=== PATIENT | male | born 1960 | race American Indian/Alaskan Native ===

== ENCOUNTER 2022-05-10 18:58 | Emergency (ER) | payer SELFPAY ==
[2022-05-11 04:56] VITALS: BP 131/78
[2022-05-11] MEDS ORDERED: IPRATROPIUM 0.02% NEBU 2.5 ML IH ONE (05:21)
[2022-05-11] MEDS ORDERED: ALBUTEROL 2.5 MG/3 ML NEBU IH ONE (05:21)
[2022-05-11] MEDS ORDERED: predniSONE 20 MG TAB PO ONE (05:21)
--- NOTE | 2022-05-11 06:02 | Emergency Department Report ---
ED General Adult HPI - General Chief complaint: Medical Clearance Stated complaint: SOB/MEDICINE REFILL Time Seen by Provider: 05/11/22 05:20 Source: EMS Mode of arrival: Stretcher Limitations: No Limitations - History of Present Illness Initial comments: Patient 62-year-old male with history of asthma who presents for medication refill states asthma is generally controlled with Symbicort inhaler. He has been out for 1 week. Patient denies fevers or chills does endorse intermittent wheezing and cough. Is productive clear to yellow. Patient is COVID vaccinated. Patient rates asthma symptoms at 3/10. Patient is alert oriented x3 and ambulatory with steady gait patient denies PND. There is no fevers no chills, no nausea no vomiting. No diaphoresis. No lightheadedness or dizziness. Patient requesting refill of Symbicort. - Related Data Previous Rx's Medication Instructions Recorded Last Taken Type Albuterol Mdi (or & Nicu Only) 2 puff IH QID PRN #8.5 gram 05/11/22 Unknown Rx [ProAir HFA Inhaler] Budesonide/Formoterol Fumarate 10.2 gm IH BID #1 each 05/11/22 Unknown Rx [Symbicort 160-4.5 Mcg Inhaler] predniSONE [Deltasone] 40 mg PO QDAY 5 Days #10 tab 05/11/22 Unknown Rx Allergies Allergy/AdvReac Type Severity Reaction Status Date / Time No Known Allergies Allergy Unverified 05/10/22 19:15 ED Review of Systems ROS: Stated complaint: SOB/MEDICINE REFILL Other details as noted in HPI Constitutional: denies: chills, fever Eyes: denies: eye pain, eye discharge, vision change ENT: denies: ear pain, throat pain Respiratory: cough, shortness of breath, wheezing Cardiovascular: denies: chest pain, palpitations Endocrine: no symptoms reported Gastrointestinal: denies: abdominal pain, nausea, vomiting, diarrhea Genitourinary: denies: urgency, dysuria Musculoskeletal: denies: back pain, joint swelling, arthralgia Skin: denies: rash, lesions Neurological: denies: headache, weakness, paresthesias, vertigo Psychiatric: denies: anxiety, depression Hematological/Lymphatic: denies: easy bleeding, easy bruising ED Past Medical Hx - Past Medical History Previous Medical History?: Yes Hx Asthma: Yes Hx COPD: Yes - Surgical History Past Surgical History?: No - Social History Smoking Status: Unknown if ever smoked - Medications Home Medications: Home Medications Medication Instructions Recorded Confirmed Last Taken Type Albuterol Mdi (or & Nicu Only) 2 puff IH QID PRN #8.5 gram 05/11/22 Unknown Rx [ProAir HFA Inhaler] Budesonide/Formoterol Fumarate 10.2 gm IH BID #1 each 05/11/22 Unknown Rx [Symbicort 160-4.5 Mcg Inhaler] predniSONE [Deltasone] 40 mg PO QDAY 5 Days #10 tab 05/11/22 Unknown Rx ED Physical Exam - General Limitations: No Limitations General appearance: alert, in no apparent distress - Head Head exam: Present: normocephalic, normal inspection - Eye Eye exam: Present: normal appearance, EOMI Pupils: Present: normal accommodation - ENT ENT exam: Present: normal orophraynx, mucous membranes moist - Neck Neck exam: Present: normal inspection, full ROM. Absent: tenderness, lymphadenopathy - Respiratory Respiratory exam: Present: normal lung sounds bilaterally, wheezes (Bilateral expiratory wheezes mild). Absent: respiratory distress, stridor, chest wall tenderness - Cardiovascular Cardiovascular Exam: Present: regular rate, normal rhythm, normal heart sounds. Absent: systolic murmur, diastolic murmur, rubs, gallop - GI/Abdominal GI/Abdominal exam: Present: soft, normal bowel sounds. Absent: distended, tenderness - Rectal Rectal exam: Present: deferred - Extremities Exam Extremities exam: Present: normal inspection, full ROM, normal capillary refill - Back Exam Back exam: Present: normal inspection, full ROM. Absent: CVA tenderness (R), CVA tenderness (L) - Neurological Exam Neurological exam: Present: alert, oriented X3, CN II-XII intact - Expanded Neurological Exam Expanded Patient oriented to: Present: person, place, time Speech: Present: fluid speech Best Eye Response ([place]): (4) open spontaneously Best Motor Response ([place]): (6) obeys commands Best Verbal Response ([place]): (5) oriented [place] Total: 15 - Psychiatric Psychiatric exam: Present: normal affect, normal mood - Skin Skin exam: Present: warm, dry, intact, normal color. Absent: rash ED Course Vital Signs 05/10/22 05/11/22 05/11/22 19:15 01:46 04:55 Temperature 98 F Pulse Rate 89 86 100 H Respiratory 18 12 12 Rate Blood Pressure 123/81 Blood Pressure 122/74 131/78 [Left] O2 Sat by Pulse 97 98 100 Oximetry ED Medical Decision Making - Medical Decision Making Symptoms improved with medications given in ED. Plan refill Symbicort as requested. Albuterol inhaler for rescue inhaler, short burst steroids. Follow- up with primary care doctor in 2 to 3 days patient verbalizes agreement and understanding with discharge plan. Patient DC'd home in stable condition at this time. Critical care attestation.: If time is entered above; I have spent that time in minutes in the direct care of this critically ill patient, excluding procedure time. ED Disposition Clinical Impression: Asthma Qualifiers: Asthma severity: moderate Asthma persistence: persistent Asthma complication type: uncomplicated Qualified Code(s): J45.40 - Moderate persistent asthma, uncomplicated Disposition: HOME / SELF CARE / HOMELESS Is pt being admited?: No Does the pt Need Aspirin: No Condition: Stable Instructions: Asthma (ED), Asthma, Adult, [id number] Additional Instructions: Take medications as prescribed, follow-up with your doctor in 2 to 3 days. Return to emergency department should symptoms worsen. Prescriptions: predniSONE [Deltasone] 40 mg PO QDAY 5 Days #10 tab Albuterol Mdi (or & Nicu Only) [ProAir HFA Inhaler] 2 puff IH QID PRN #8.5 gram PRN Reason: Shortness Of Breath Budesonide/Formoterol Fumarate [Symbicort 160-4.5 Mcg Inhaler] 10.2 gm IH BID #1 each Referrals: LEE WATTS MD [Staff Physician] - 3-5 Days Forms: Work/School Release Form(ED) Time of Disposition: 06:05
== END 2022-05-11 06:51 | disposition home or self-care (01) ==
LOC: ED 18:58
DX: J45.909 Unspecified asthma, uncomplicated (principal)
CPT/HCPCS: 94640; 99282; 99283

== ENCOUNTER 2022-05-13 21:23 | Emergency (ER) | payer SELFPAY ==
[2022-05-13] MEDS ORDERED: TETANUS,DIPH,PERTUSS(ACELL) VACCINE 0.5 ML SYRINGE IM ONE (23:26)
--- NOTE | 2022-05-13 23:28 | Event Note ---
Date: 05/13/22 Medical screening examination note EMS documentation not available at time of chart dictation Medical screening examination note: 62-year-old gentleman reportedly brought to the hospital by EMS for alcohol intoxication and fall. Patient obviously intoxicated breathing spontaneously, has evidence of closed head injury, and is moving 4 extremities. He is protecting his airway. His vital signs are unremarkable. Obtain CT scan brain, facial bones, and cervical spine. Obtain appropriate laboratory studies. Placed patient on monitor. Aspiration precautions. Head of bed elevation. N.p.o. at this time. Tetanus vaccination. Detailed history and physical to be performed by oncoming provider Vital Signs 05/13/22 21:23 Temperature 98.2 F Pulse Rate 72 Respiratory 18 Rate Blood Pressure 150/79 O2 Sat by Pulse 100 Oximetry
[2022-05-14 00:07] LABS: Hematocrit 40.8 % (35.5-45.6); Hemoglobin 13.3 gm/dl (11.8-15.2); Mean Corpuscular HGB Conc 33 % (32-34); Mean Corpuscular Volume 96 fl (84-94); Platelet Count 277 K/mm3 (140-440); Red Blood Count 4.26 M/mm3 (3.65-5.03); Red Cell Distribution Width 13.1 % (13.2-15.2)
[2022-05-14 00:15] LABS: INR 0.91 (0.87-1.13)
[2022-05-14 00:17] LABS: Alanine Aminotransferase 26 units/L (7-56); Albumin 4.5 g/dL (3.9-5); Blood Urea Nitrogen 10 mg/dL (9-20); Calcium 8.6 mg/dL (8.4-10.2); Hemolysis Index 7
[2022-05-14 00:20] LABS: BUN/Creatinine Ratio 14
--- NOTE | 2022-05-14 01:02 | Cat Scan Report ---
CT HEAD WITHOUT CONTRAST INDICATION / CLINICAL INFORMATION: Alcohol intoxication, fall, and closed head injury. TECHNIQUE: All CT scans at this location are performed using CT dose reduction for ALARA by means of automated exposure control. COMPARISON: None available. FINDINGS: BRAIN PARENCHYMA: No acute intracranial hemorrhage. No evidence of recent infarct. No mass effect or midline shift. There is mild generalized atrophy with a chronic appearing left basal ganglial lacunar infarct as well as additional likely chronic microvascular ischemic changes along the periventricula r white matter. VENTRICULAR SYSTEM/EXTRA-AXIAL SPACES: Ventricles are normal for age. No extra-axial fluid collection . ORBITS: Normal as visualized. SKELETAL SYSTEM/SOFT TISSUES: Normal bones and soft tissues. PARANASAL SINUSES/MASTOID AIR CELLS: No significant abnormality. ADDITIONAL FINDINGS: None. IMPRESSION: 1. No acute intracranial abnormality. 2. Additional findings as above. Signer Name: Jose Monreal MD Signed: 05/14/2022 12:57 AM Workstation Name: [id number]
--- NOTE | 2022-05-14 01:04 | Cat Scan Report ---
CT MAXILLOFACIAL WITHOUT CONTRAST INDICATION: Alcohol Intoxication. Facial injury. History of fall. TECHNIQUE: Axial, coronal and sagittal noncontrast CT imaging was performed through the face. All CT scans at [facility] are performed using CT dose reduction for ALARA by means of automated exposure control. COMPARISON: None available. FINDINGS: FACIAL BONES: No acute fracture or dislocation. Moderate degenerative arthrosis is seen at the right TMJ. PARANASAL SINUSES: Mild mucosal thickening is noted along the ethmoid air cells and maxillary sinuses with a fluid level seen along the right sphenoid sinus. No other significant abnormality of the sinu ses or mastoid air cells. ORBITS: No significant abnormality. VISUALIZED INTRACRANIAL STRUCTURES: No significant abnormality. ADDITIONAL FINDINGS: None. IMPRESSION: 1. No acute injury of the face. 2. Additional findings as above. Signer Name: Jose Monreal MD Signed: 05/14/2022 1:00 AM Workstation Name: [id number]
--- NOTE | 2022-05-14 01:08 | Cat Scan Report ---
CT CERVICAL SPINE WITHOUT CONTRAST INDICATION: Neck injury after fall. History of alcohol intoxication. COMPARISON: None available. TECHNIQUE: Axial, coronal and sagittal CT imaging of the cervical spine without contrast was performe d. All CT scans at this location are performed using CT dose reduction for ALARA by means of automat ed exposure control. FINDINGS: ALIGNMENT: Normal alignment. VERTEBRAE: No fracture. Vertebral body heights are preserved. C1 and C2 are congruent. SPONDYLOSIS: Multilevel moderate discogenic and facet joint degenerative changes are noted with sever e right neural foraminal stenosis at C6-C7 and moderate right neural foraminal stenosis at C5-C6. No significant central canal stenosis. SOFT TISSUES: No significant soft tissue abnormality. ADDITIONAL FINDINGS: No significant additional findings. IMPRESSION: 1. No acute findings. 2. Moderate cervical spondylosis as above. Signer Name: Jose Monreal MD Signed: 05/14/2022 1:04 AM Workstation Name: [id number]
[2022-05-14 03:31] LABS: WBC,Urine < 1.0 /HPF (0.0-6.0)
[2022-05-14 03:33] LABS: Color,Urine Yellow (Yellow)
[2022-05-14 03:34] LABS: Amphetamine Screen,Urine PRESUMPTIVE NEGATIVE; Benzodiazepines Screen,Urine PRESUMPTIVE NEGATIVE; Cannabinoid Screen,Urine PRESUMPTIVE NEGATIVE; Cocaine Screen,Urine PRESUMPTIVE NEGATIVE; Methadone Screen,Urine PRESUMPTIVE NEGATIVE; Opiate Screen,Urine PRESUMPTIVE NEGATIVE
[2022-05-14] MEDS ORDERED: TETANUS,DIPH,PERTUSS(ACELL) VACCINE 0.5 ML SYRINGE IM ONE (04:10)
--- NOTE | 2022-05-14 04:28 | Emergency Department Report ---
ED Alcohol HPI - General Chief Complaint: Fall Stated Complaint: FALL Time Seen by Provider: 05/14/22 00:08 Source: patient, EMS Mode of arrival: Stretcher Limitations: No Limitations - History of Present Illness Initial Comments: 62-year-old male with a past medical history of asthma and COPD presents to the hospital with acute alcohol intoxication and abrasions to face after trip and fall injury. Patient claims to have had only 1 beer today. Positive EtOH and of breath with acute intoxication noted. Patient complains of facial pain. - Related Data Previous Rx's Medication Instructions Recorded Last Taken Type Albuterol Mdi (or & Nicu Only) 2 puff IH QID PRN #8.5 gram 05/11/22 Unknown Rx [ProAir HFA Inhaler] Budesonide/Formoterol Fumarate 10.2 gm IH BID #1 each 05/11/22 Unknown Rx [Symbicort 160-4.5 Mcg Inhaler] predniSONE [Deltasone] 40 mg PO QDAY 5 Days #10 tab 05/11/22 Unknown Rx Albuterol Mdi (or & Nicu Only) 2 puff IH QID PRN #8.5 gram 05/14/22 Unknown Rx [ProAir HFA Inhaler] Allergies Allergy/AdvReac Type Severity Reaction Status Date / Time No Known Allergies Allergy Unverified 05/10/22 19:15 ED Review of Systems ROS: Stated complaint: FALL Other details as noted in HPI Comment: All other systems reviewed and negative ED Past Medical Hx - Past Medical History Previous Medical History?: Yes Hx Asthma: Yes Hx COPD: Yes - Surgical History Past Surgical History?: No - Social History Smoking Status: Current Every Day Smoker Substance Use Type: Alcohol - Medications Home Medications: Home Medications Medication Instructions Recorded Confirmed Last Taken Type Albuterol Mdi (or & Nicu Only) 2 puff IH QID PRN #8.5 gram 05/11/22 Unknown Rx [ProAir HFA Inhaler] Budesonide/Formoterol Fumarate 10.2 gm IH BID #1 each 05/11/22 Unknown Rx [Symbicort 160-4.5 Mcg Inhaler] predniSONE [Deltasone] 40 mg PO QDAY 5 Days #10 tab 05/11/22 Unknown Rx Albuterol Mdi (or & Nicu Only) 2 puff IH QID PRN #8.5 gram 05/14/22 Unknown Rx [ProAir HFA Inhaler] ED Physical Exam - General Limitations: No Limitations - Other Other exam information: General: Alcohol intoxication Head: Atraumatic Eyes: normal appearance ENT: Multiple abrasions to the face including nose and lip. Neck: Normal appearance, no midline tenderness Chest: Clear to auscultation bilaterally CV: Regular rate and rhythm Abdomen: Soft, normal bowel sounds, nontender, nondistended, no rebound or guarding Back: Normal inspection Extremity: Normal inspection, full range of motion Neuro: Alert O x 3, no facial asymmetry, no gross motor or sensory deficit Psych: Appropriate behavior Skin: No rash ED Course Vital Signs 05/13/22 05/13/22 05/13/22 21:23 23:25 23:31 Temperature 98.2 F Pulse Rate 72 91 H 84 Respiratory 18 20 18 Rate Blood Pressure 150/79 126/89 Blood Pressure [Left] O2 Sat by Pulse 100 96 95 Oximetry 05/13/22 05/14/22 05/14/22 23:45 00:01 00:15 Temperature Pulse Rate 92 H 91 H 92 H Respiratory 20 17 22 Rate Blood Pressure 123/86 123/86 113/77 Blood Pressure [Left] O2 Sat by Pulse 93 91 95 Oximetry 05/14/22 05/14/22 05/14/22 00:30 00:51 01:01 Temperature Pulse Rate 86 92 H 88 Respiratory 16 19 17 Rate Blood Pressure 123/86 123/86 123/86 Blood Pressure [Left] O2 Sat by Pulse 95 98 93 Oximetry 05/14/22 05/14/22 05/14/22 01:15 01:31 01:45 Temperature Pulse Rate 90 88 86 Respiratory 16 17 15 Rate Blood Pressure 104/80 104/80 118/91 Blood Pressure [Left] O2 Sat by Pulse 93 94 92 Oximetry 05/14/22 05/14/22 05/14/22 02:01 02:15 02:31 Temperature Pulse Rate 86 104 H 86 Respiratory 16 27 H 16 Rate Blood Pressure 118/91 117/80 117/80 Blood Pressure [Left] O2 Sat by Pulse 91 Oximetry 05/14/22 05/14/22 05/14/22 02:45 03:01 03:15 Temperature Pulse Rate 90 88 88 Respiratory 18 18 17 Rate Blood Pressure 123/90 123/90 121/95 Blood Pressure [Left] O2 Sat by Pulse Oximetry 05/14/22 05/14/22 05/14/22 03:31 03:45 04:01 Temperature Pulse Rate 94 H 92 H 88 Respiratory 19 21 17 Rate Blood Pressure 121/95 112/65 112/65 Blood Pressure [Left] O2 Sat by Pulse Oximetry 05/14/22 05/14/22 05/14/22 04:15 04:31 04:45 Temperature Pulse Rate 88 87 89 Respiratory 17 16 18 Rate Blood Pressure 114/67 114/67 112/65 Blood Pressure [Left] O2 Sat by Pulse Oximetry 05/14/22 05/14/22 05/14/22 05:01 05:15 05:31 Temperature Pulse Rate 90 94 H 93 H Respiratory 16 16 17 Rate Blood Pressure 112/65 109/60 109/60 Blood Pressure [Left] O2 Sat by Pulse Oximetry 05/14/22 05/14/22 05/14/22 05:45 06:01 06:15 Temperature Pulse Rate 89 93 H 106 H Respiratory 16 23 24 Rate Blood Pressure 102/78 102/78 115/79 Blood Pressure [Left] O2 Sat by Pulse Oximetry 05/14/22 09:15 Temperature Pulse Rate 88 Respiratory 18 Rate Blood Pressure Blood Pressure 142/75 [Left] O2 Sat by Pulse 100 Oximetry ED Medical Decision Making - Lab Data Result diagrams: 05/13/22 23:41 05/13/22 23:41 Lab Results 05/13/22 05/13/22 05/13/22 Range/Units 23:41 23:41 23:41 WBC 5.2 (4.5-11.0) K/mm3 RBC 4.26 (3.65-5.03) M/mm3 Hgb 13.3 (11.8-15.2) gm/dl Hct 40.8 (35.5-45.6) % MCV 96 H (84-94) fl MCH 31 (28-32) pg MCHC 33 (32-34) % RDW 13.1 L (13.2-15.2) % Plt Count 277 (140-440) K/mm3 PT 13.2 (12.2-14.9) Sec. INR 0.91 (0.87-1.13) Sodium 136 L (137-145) mmol/L Potassium 4.0 (3.6-5.0) mmol/L Chloride 99.2 (98-107) mmol/L Carbon Dioxide 24 (22-30) mmol/L Anion Gap 17 mmol/L BUN 10 (9-20) mg/dL Creatinine 0.7 L (0.8-1.3) mg/dL Estimated GFR > 60 ml/min BUN/Creatinine Ratio 14 % Glucose 86 (75-100) mg/dL Calcium 8.6 (8.4-10.2) mg/dL Magnesium 2.20 (1.7-2.3) mg/dL Total Bilirubin 0.50 (0.1-1.2) mg/dL AST 33 (5-40) units/L ALT 26 (7-56) units/L Alkaline Phosphatase 66 (35-129) units/L Total Protein 6.6 (6.3-8.2) g/dL Albumin 4.5 (3.9-5) g/dL Albumin/Globulin Ratio 2.1 % Urine Color (Yellow) Urine Turbidity (Clear) Specific [place] (Man) (1.003-1.030) Ur Protein (Man) (Negative) mg/dL Ur Ketones (Man) (Negative) Ur Nitrite (Man) (Negative) Ur Reducing Substances Urine Bilirubin (Man) (Negative) Urine Ictotest Leukocyte Esterase (Man) (Negative) Urine WBC (Auto) (0.0-6.0) /HPF Urine RBC (Auto) (0.0-6.0) /HPF U Epithel Cells (Auto) (0-13.0) /HPF Urine RBC (Manual) (Negative) Salicylates (2.8-20.0) mg/dL Urine Opiates Screen Urine Methadone Screen Acetaminophen (10.0-30.0) ug/mL Ur Barbiturates Screen Ur Phencyclidine Scrn Ur Amphetamines Screen U Benzodiazepines Scrn Urine Cocaine Screen U Marijuana (THC) Screen Drugs of Abuse Note Plasma/Serum Alcohol (0-0.07) % 05/13/22 05/13/22 05/13/22 Range/Units 23:41 23:41 23:41 WBC (4.5-11.0) K/mm3 RBC (3.65-5.03) M/mm3 Hgb (11.8-15.2) gm/dl Hct (35.5-45.6) % MCV (84-94) fl MCH (28-32) pg MCHC (32-34) % RDW (13.2-15.2) % Plt Count (140-440) K/mm3 PT (12.2-14.9) Sec. INR (0.87-1.13) Sodium (137-145) mmol/L Potassium (3.6-5.0) mmol/L Chloride (98-107) mmol/L Carbon Dioxide (22-30) mmol/L Anion Gap mmol/L BUN (9-20) mg/dL Creatinine (0.8-1.3) mg/dL Estimated GFR ml/min BUN/Creatinine Ratio % Glucose (75-100) mg/dL Calcium (8.4-10.2) mg/dL Magnesium (1.7-2.3) mg/dL Total Bilirubin (0.1-1.2) mg/dL AST (5-40) units/L ALT (7-56) units/L Alkaline Phosphatase (35-129) units/L Total Protein (6.3-8.2) g/dL Albumin (3.9-5) g/dL Albumin/Globulin Ratio % Urine Color (Yellow) Urine Turbidity (Clear) Specific [place] (Man) (1.003-1.030) Ur Protein (Man) (Negative) mg/dL Ur Ketones (Man) (Negative) Ur Nitrite (Man) (Negative) Ur Reducing Substances Urine Bilirubin (Man) (Negative) Urine Ictotest Leukocyte Esterase (Man) (Negative) Urine WBC (Auto) (0.0-6.0) /HPF Urine RBC (Auto) (0.0-6.0) /HPF U Epithel Cells (Auto) (0-13.0) /HPF Urine RBC (Manual) (Negative) Salicylates < 0.3 L (2.8-20.0) mg/dL Urine Opiates Screen Urine Methadone Screen Acetaminophen 5.0 L (10.0-30.0) ug/mL Ur Barbiturates Screen Ur Phencyclidine Scrn Ur Amphetamines Screen U Benzodiazepines Scrn Urine Cocaine Screen U Marijuana (THC) Screen Drugs of Abuse Note Plasma/Serum Alcohol 0.26 H (0-0.07) % 05/14/22 05/14/22 Range/Units 03:18 03:18 WBC (4.5-11.0) K/mm3 RBC (3.65-5.03) M/mm3 Hgb (11.8-15.2) gm/dl Hct (35.5-45.6) % MCV (84-94) fl MCH (28-32) pg MCHC (32-34) % RDW (13.2-15.2) % Plt Count (140-440) K/mm3 PT (12.2-14.9) Sec. INR (0.87-1.13) Sodium (137-145) mmol/L Potassium (3.6-5.0) mmol/L Chloride (98-107) mmol/L Carbon Dioxide (22-30) mmol/L Anion Gap mmol/L BUN (9-20) mg/dL Creatinine (0.8-1.3) mg/dL Estimated GFR ml/min BUN/Creatinine Ratio % Glucose (75-100) mg/dL Calcium (8.4-10.2) mg/dL Magnesium (1.7-2.3) mg/dL Total Bilirubin (0.1-1.2) mg/dL AST (5-40) units/L ALT (7-56) units/L Alkaline Phosphatase (35-129) units/L Total Protein (6.3-8.2) g/dL Albumin (3.9-5) g/dL Albumin/Globulin Ratio % Urine Color Yellow (Yellow) Urine Turbidity Clear (Clear) Specific [place] (Man) 1.030 (1.003-1.030) Ur Protein (Man) Negative (Negative) mg/dL Ur Ketones (Man) Negative (Negative) Ur Nitrite (Man) Negative (Negative) Ur Reducing Substances Not Reportable Urine Bilirubin (Man) Negative (Negative) Urine Ictotest Not Reportable Leukocyte Esterase (Man) Negative (Negative) Urine WBC (Auto) < 1.0 (0.0-6.0) /HPF Urine RBC (Auto) 1.0 (0.0-6.0) /HPF U Epithel Cells (Auto) < 1.0 (0-13.0) /HPF Urine RBC (Manual) Negative (Negative) Salicylates (2.8-20.0) mg/dL Urine Opiates Screen Presumptive negative Urine Methadone Screen Presumptive negative Acetaminophen (10.0-30.0) ug/mL Ur Barbiturates Screen Presumptive negative Ur Phencyclidine Scrn Presumptive negative Ur Amphetamines Screen Presumptive negative U Benzodiazepines Scrn Presumptive negative Urine Cocaine Screen Presumptive negative U Marijuana (THC) Screen Presumptive negative Drugs of Abuse Note Disclamer Plasma/Serum Alcohol (0-0.07) % - Radiology Data Radiology results: report reviewed The following reports were reviewed and did not show any acute injury CT head, CT cervical spines, CT facial bones - Medical Decision Making 62-year-old male presents with acute alcohol intoxication and facial abrasion status post trip and fall. CT imaging was also unremarkable. Labs unremarkable with exception of elevated blood alcohol level. Patient will be signed out to oncoming provider Dr. Pantoja to discharge once clinically sober and will be prepped for discharge Critical Care Time: No Critical care attestation.: If time is entered above; I have spent that time in minutes in the direct care of this critically ill patient, excluding procedure time. ED Disposition Clinical Impression: Acute alcohol intoxication, Abrasion of face Disposition: 01 HOME / SELF CARE / HOMELESS Is pt being admited?: No Condition: Stable Instructions: Alcohol Intoxication, Abrasion, [id number] Additional Instructions: Use [id number] antibiotic ointment for your facial abrasions. follow-up with your doctor or doctor/clinic provided. Return if symptoms worsen as indicated by your discharge instructions. Prescriptions: Albuterol Mdi (or & Nicu Only) [ProAir HFA Inhaler] 2 puff IH QID PRN #8.5 gram PRN Reason: Shortness Of Breath Referrals: GABRIELA BROWN MD [Primary Care Provider] - 3-5 Days [facility] [Provider Group] - 3-5 Days
[2022-05-14 09:16] VITALS: BP 142/75
== END 2022-05-14 09:16 | disposition home or self-care (01) ==
LOC: ED 21:23
DX: S00.81XA Abrasion of other part of head, initial encounter (principal); F10.129 Alcohol abuse with intoxication, unspecified; Z79.899 Other long term (current) drug therapy; W19.XXXA Unspecified fall, initial encounter; Y93.89 Activity, other specified; Y92.89 Other specified places as the place of occurrence of the external cause; Y99.8 Other external cause status; Y90.9 Presence of alcohol in blood, level not specified
CPT/HCPCS: 36415; 70450; 70486; 72125; 80053; 80307; 80320; 81001; 83735; 85027; 85610; 90471; 90715; 99284; G0480

== ENCOUNTER 2022-05-14 09:20 | Emergency (ER) | payer SELFPAY ==
[2022-05-14 09:37] VITALS: BP 123/75
== END 2022-05-14 12:50 | disposition left against medical advice (07) ==
LOC: ED 09:20
DX: J45.909 Unspecified asthma, uncomplicated (principal); Z53.21 Procedure and treatment not carried out due to patient leaving prior to being seen by health care provider